=== PATIENT | male | born 1975 | race Caucasian/White ===

== ENCOUNTER 2020-12-12 06:55 | Day surgery (SDC) | payer OTHER, SELFPAY ==
[~2020-12-12] VITALS: Ht 167.6 cm; Wt 79.8 kg
[2020-12-12] MEDS ORDERED: MIDAZOLAM HCL 5 MG/5 ML VIAL ONE (07:31)
[2020-12-12] MEDS ORDERED: SIMETHICONE 40 MG/0.6 ML ML ONE (07:31)
[2020-12-12] MEDS ORDERED: MEPERIDINE 100 MG INJ. 100 MG/ML VIAL ONE (07:31)
[2020-12-12] MEDS ORDERED: fentaNYL CITRATE/PF 100 MCG/2 ML AMP ONE (07:44)
[2020-12-12 14:18] VITALS: BP_SYST 122
== END 2020-12-12 10:30 | disposition home or self-care (01) ==
LOC: SDS 06:55 → SMU 06:55 → SDS 10:30
PROVIDERS: ATTEND Internal Medicine Gastroenterology
DX: Z12.11 Encounter for screening for malignant neoplasm of colon (principal); K70.31 Alcoholic cirrhosis of liver with ascites; I85.00 Esophageal varices without bleeding; K64.8 Other hemorrhoids; J33.8 Other polyp of sinus; F10.21 Alcohol dependence, in remission; E11.9 Type 2 diabetes mellitus without complications; Z68.28 Body mass index [BMI] 28.0-28.9, adult
CPT/HCPCS: 43239; 45378; 36415 ×2; 82962; 87081; 87426; 88305; 88312; 88313; 99152; 99153; G0378; J2175; J2250; J3010

== ENCOUNTER 2021-11-02 12:32 | Inpatient (IN) | payer OTHER ==
[~2021-11-02] VITALS: Ht 167.6 cm; Wt 72.6 kg
[~2021-11-02 12:32] MED LIST: FERR-69 PO; FURO-150 PO; LACT10SO6 PO; LEVO500T90 PO; NADO20TA9 PO; PRO40 PO; RIVA10TA PO; SPIR50TA5 PO
[2021-11-02 12:35] VITALS: BP_SYST 114
--- NOTE | 2021-11-02 12:35 | NUR ---
Placed in room 7 . Placed on rn cardiac, blood pressure machine and pulse oximeter. To gown for exam. Side rails up. Report given to OMA FINE.
--- NOTE | 2021-11-02 12:40 | NUR ---
ER DR. SHAW AT THE BEDSIDE EXAMINING PT
--- NOTE | 2021-11-02 12:55 | NUR ---
# 20 gauge angiocath placed to LAC. Use of asceptic technique. Opsite placed over site. Blood return noted. Blood for lab drawn from site. Flushed with 10 cc of normal saline. No evidence of infiltration noted. Patient tolerated well.
[2021-11-02 13:16] LABS: WHITE BLOOD COUNT (AUTO) 4.1 K/uL (4.8-10.8)
--- NOTE | 2021-11-02 13:16 | NUR ---
In ER 7 Sent by family dt increased confusion Hx of Liver Dx Blood sent including NH4 level Awaiting results
[2021-11-02 13:17] LABS: CALCIUM 7.1 mg/dL (8.4-11.0); CREATININE 0.99 mg/dL (0.55-1.30); POTASSIUM 3.9 mmol/L (3.5-5.1)
[2021-11-02 13:23] LABS: ALBUMIN 2.3 g/dL (3.4-4.8); TOTAL BILIRUBIN 1.1 mg/dL (0.0-1.0)
[2021-11-02 13:25] LABS: BASOPHILS % (AUTO) 1.1 % (0.0-2.0); EOSINOPHILS # (AUTO) 0.1 K/uL (0.0-0.4); EOSINOPHILS % (AUTO) 2.9 % (0.0-4.0); HEMATOCRIT 27.7 % (36-54); HEMOGLOBIN 8.9 g/dL (14.0-18.0); LYMPHOCYTES # (AUTO) 0.4 K/uL (1.0-5.5); LYMPHOCYTES % (AUTO) 9.6 % (20.5-51.5); MEAN CORPUSCULAR HEMOGLOBIN 29 pg (27-31); MEAN CORPUSCULAR HGB CONC 32 % (32-36); MEAN CORPUSCULAR VOLUME 89 fL (79.0-98.0); MONOCYTES # (AUTO) 0.6 K/uL (0.0-1.0); MONOCYTES % (AUTO) 13.7 % (1.7-9.3); NEUTROPHILS % (AUTO) 72.7 % (40.0-70.0); RED BLOOD CELL COUNT(AUTO) 3.12 MIL/uL (4.2-6.2)
[2021-11-02 13:44] LABS: PLATELET COUNT (AUTO) 79 K/uL (130-430)
--- NOTE | 2021-11-02 13:54 | NUR ---
COVID swab given to dr. torrez Addendum: 11/02/21 at 1355 by [email or web address] COVID swab done at bedside and sent to lab
--- NOTE | 2021-11-02 15:01 | NUR ---
Stable. VSS. Confusion persists. Getting out of bed and pulling at lines. To be admitted. Awaiting bed on floor.
[2021-11-02] MEDS ORDERED: RIFAXIMIN 550 MG TABLET PO ONE (17:15)
[2021-11-02 17:22] VITALS: BP_SYST 122
--- NOTE | 2021-11-02 17:23 | NUR ---
CONSULT NEUROLOGY CONFUSION DR DOMINGUEZ SENT TEXT TO DR DOMINGUEZ
--- NOTE | 2021-11-02 18:04 | NUR ---
Stable. VSS. LOC x 2. Confusion has not increased. Patient has been admitted. Report given to floor Ambulated to Placed in bed Nurse aware
[2021-11-02] MEDS: LACTULOSE 20 GM/30 ML UDC PO SCH ×2 (18:19→22:15)
--- NOTE | 2021-11-02 18:48 | NUR ---
RECEIVED PATIENT FROM EMERGENCY ROOM,FAMILY AT BEDSIDE. PATIENT IN BED RESTING COMFORTABLY HOB ELEVATED. NO C/O PAIN OR DISCOMFORT. RESPIRATIONS ARE NON-LABORED. SKIN IS CLEAN, WARM AND DRY TO TOUCH. IV ACCESS IS PATENT, DRY, INTACT, NO S/SX OF REDNESS NOR SWELLING OBSERVED. BED IS LOCKED IN LOWEST POSITION, CALL LIGHT IN REACH. NURSE WILL ENDORSE PATIENT TO REFERRAL SPECIALIST NURSE FOR CONTINUE CARE
[2021-11-02 19:00] VITALS: BP_SYST 103
[2021-11-02 20:00] VITALS: BP_SYST 103
--- NOTE | 2021-11-02 20:00 | NUR ---
Pt A/O x4. No respiratory distress noted or reported. VS stable. Pt denied any pain or discomfort. Encouraged pt to utilize urinal for accurate measurement of intake and output. Instructed pt to call for assistance OOB. Call light and belongings within reach. PIV patent and without complications. All safety precautions in place. Plan for pt to have Paracentesis. Consent to be signed once pt speaks with MD performing procedure and understands all risks and benefits of procedure. Pt on scheduled lactulose to decrease NH3 level. Will reorient pt PRN. Monitoring continued.
--- NOTE | 2021-11-02 20:50 | NUR ---
Spoke with OMA Dennison from [facility] in the Liver Transplant Unit. Updated OMA Dennison with SBAR report. OMA Dennison stated that he will forward information to Liver Transplant Team at [facility]. Liver Transplant Team at [facility] to follow-up with [facility] re: if it is necessary to transfer pt to [facility]. OMA Dennison stated that we may call for any questions or concerns: [facility] 24 hour transplant on-call: [phone] and/or [facility] Transfer Center: [phone].
[2021-11-02] MEDS: RIFAXIMIN 550 MG TABLET PO SCH (22:15)
[2021-11-03] MEDS ORDERED: HYDROcodone/ACETAMIN 10-325 MG TAB PO PRN (00:15)
[2021-11-03] MEDS ORDERED: HYDROcodone/ACETAMIN 5-325 MG TAB (NORCO/ VICODIN) PO PRN (00:15)
[2021-11-03] MEDS ORDERED: ACETAMINOPHEN 325 MG TABLET PO PRN (00:15)
[2021-11-03] MEDS ORDERED: NALOXONE HCL 0.4 MG/ML AMP (NARCAN) IVP PRN ×2 (00:15)
[2021-11-03] MEDS ORDERED: LORazepam 2 MG/ML VIAL IVP PRN (00:15)
[2021-11-03] MEDS ORDERED: ONDANSETRON HCL 4 MG/2 ML VIAL IVP PRN (00:15)
[2021-11-03 00:26] VITALS: BP_SYST 94
[2021-11-03] MEDS ORDERED: NORMAL SALINE 5 ML DISP.SYRIN IVF SCH (06:00)
[2021-11-03] MEDS: NORMAL SALINE 5 ML DISP.SYRIN IVF SCH ×3 (06:51→21:57)
[2021-11-03 07:06] LABS: BASOPHILS % (AUTO) 1.3 % (0.0-2.0); EOSINOPHILS # (AUTO) 0.2 K/uL (0.0-0.4); EOSINOPHILS % (AUTO) 6.7 % (0.0-4.0); HEMATOCRIT 22.6 % (36-54); HEMOGLOBIN 7.3 g/dL (14.0-18.0); LYMPHOCYTES # (AUTO) 0.4 K/uL (1.0-5.5); LYMPHOCYTES % (AUTO) 16.1 % (20.5-51.5); MEAN CORPUSCULAR HEMOGLOBIN 29 pg (27-31); MEAN CORPUSCULAR HGB CONC 32 % (32-36); MEAN CORPUSCULAR VOLUME 89 fL (79.0-98.0); MONOCYTES # (AUTO) 0.5 K/uL (0.0-1.0); MONOCYTES % (AUTO) 17.9 % (1.7-9.3); NEUTROPHILS # (AUTO) 1.6 K/uL (1.8-7.7); PLATELET COUNT (AUTO) 59 K/uL (130-430); RED BLOOD CELL COUNT(AUTO) 2.55 MIL/uL (4.2-6.2); RED CELL DISTRIBUTION WIDTH 17.9 % (9.0-15.0); WHITE BLOOD COUNT (AUTO) 2.7 K/uL (4.8-10.8)
[2021-11-03 07:27] LABS: ALBUMIN 1.9 g/dL (3.4-4.8); CALCIUM 7.2 mg/dL (8.4-11.0); CREATININE 0.85 mg/dL (0.55-1.30); POTASSIUM 3.2 mmol/L (3.5-5.1)
--- NOTE | 2021-11-03 08:00 | NUR ---
PATIENT IN BED RESTING COMFORTABLY, AAOX4, NO S/SX OF PAIN OR DISCOMFORT. RESPIRATIONS ARE NON-LABORED. SKIN IS CLEAN, WARM AND DRY TO TOUCH. IV ACCESS IS PATENT, DRY AND INTACT, NO S/SX OF REDNESS OR SWELLING OBSERVED. BED IS LOCKED IN LOWEST POSITION, CALL LIGHT IN REACH. NURSE WILL CONTINUE CARE AND MONITOR FOR CHANGES IN STATUS.
[2021-11-03] MEDS: FUROSEMIDE 20 MG TABLET PO SCH (09:00)
[2021-11-03] MEDS: PANTOPRAZOLE SODIUM 40 MG TAB PO SCH ×2 (09:00→10:00)
[2021-11-03] MEDS: FERROUS SULFATE 325 MG TABLET.DR PO SCH ×2 (09:00→09:59)
[2021-11-03] MEDS: levoFLOXacin 500 MG TABLET PO SCH (09:00)
[2021-11-03] MEDS ORDERED: LACTULOSE 20 GM/30 ML UDC PO SCH (09:00)
[2021-11-03] MEDS: SPIRONOLACTONE 50 MG TABLET (ALDACTONE) PO SCH (09:00)
[2021-11-03] MEDS: METOPROLOL TARTRATE 25 MG TABLET PO SCH ×2 (09:00→21:56)
[2021-11-03] MEDS: RIFAXIMIN 550 MG TABLET PO SCH ×2 (09:00→21:56)
[2021-11-03] MEDS: LACTULOSE 20 GM/30 ML UDC PO SCH ×4 (09:59→21:56)
--- NOTE | 2021-11-03 11:54 | NUR ---
Logo Admission Assessment - Care Management Last Saved By: Aubree Dooley Last Saved On: 11/03/2021 11:54 AM (PT) Created By: Aubree Dooley Created On: 11/03/2021 11:53 AM (PT) Patient Information Patient Name: PREMA GIRARD Address: [address] [place] [address] [address] [id number] SSN: : 1975 (age 46 years) Work Phone: [phone] Gender: Male Alternative Phone: Marital Status: Other Race: DECLINED TO STATE Race 2: Ethnicity: or or [place] Origin Ethnicity 2: Patient's Information Who was Interviewed? Answers: Other - Specify (Caregiver, Family, Friend etc) Notes: at bedside What language does the patient speak? Answers: Lithuanian Admitting Facility Answers: *[facility] [[id number]] Admitting Diagnosis AMS,hepatic encephalopathy Advanced Care Planning (check all that apply) Answers: Patient does NOT have advanced Care Planning. Additional Patient Notes covid vaccine x 2 & booster History and Prior Level of Function DME--PRIOR to Admission: Answers: No DME Cognitive--PRIOR to Admission: Answers: Alert & Orientated Home Setting--PRIOR to Admission: Answers: Private Home Notes: [facility] 2 steps lives w/ Erika Was patient receiving Home Health Services prior to Admission? Answers: No Potential Barriers to Discharge Anticipated Discharge Disposition Answers: Home Does the patient have any potential barriers to DC? (indicate barrier & plan to address) Answers: NO, anticipate DC to previous living situations, no additional services anticipated Signature Signature: Signature Date Signed: 11/03/2021 11:54 AM (PT) Signed By: Aubree Dooley Position: Inpatient [employer] D[employer] Pager Number: Allscripts Generated (Scan) Page 1 of Copyright 2021 [employer]. [Production([id number])]
[2021-11-03 12:51] VITALS: BP_SYST 122
--- NOTE | 2021-11-03 15:06 | NUR ---
Contacted Dr. Plasencia's exchange and spoke to Izzy at [phone]. Left first message reporting laboratory result of HGB 7.3. HGB was 8.9 on 11/02/21. Patient will not have paracentesis due to ultrasound showing 80ml in right lower abdominal quadrant. Patient currently with no signs of bleeding or shortness of breath. Will wait for call back and continue to monitor patient for changes in condition.
--- NOTE | 2021-11-03 16:40 | NUR ---
Patient is in bed resting comfortably. IV is intact and patent. No redness or swelling observed. No s/sx of pain or discomfort observed. Respirations are even and unlabored. Skin is clean, warm and dry to touch. Bed locked in lowest position safety. Call light within reach. Will continue to monitor patient for any changes in condition.
[2021-11-03 16:45] VITALS: BP_SYST 120
--- NOTE | 2021-11-03 16:53 | NUR ---
Contacted Dr. Plasencia's exchange and spoke to Izzy at [phone]. left Second message regarding HGB 7.3. Also left message reporting laboratory result of K+ 3.2 No s/sx of pain or discomfort, no SOB. Will wait for call back and continue to monitor patient for changes in condition.
--- NOTE | 2021-11-03 16:59 | NUR ---
Correction: Contacted Dr. Plasencia's exchange and spoke to Donovan at [phone]. left Second message regarding HGB 7.3. Also left message reporting laboratory result of K+ 3.2 No s/sx of pain or discomfort, no SOB. Will wait for call back and continue to monitor patient for changes in condition.
[2021-11-03] MEDS ORDERED: POTASSIUM CHLORIDE 20 MEQ TAB.PRT.SR PO ONE (18:00)
[2021-11-03] MEDS: RIVAROXABAN 10 MG TABLET PO SCH (18:10)
--- NOTE | 2021-11-03 18:54 | NUR ---
RECEIVED PATIENT FROM EMERGENCY ROOM,FAMILY AT BEDSIDE. PATIENT IN BED RESTING COMFORTABLY HOB ELEVATED. NO C/O PAIN OR DISCOMFORT. RESPIRATIONS ARE NON-LABORED. SKIN IS CLEAN, WARM AND DRY TO TOUCH. IV ACCESS IS PATENT, DRY, INTACT, NO S/SX OF REDNESS NOR SWELLING OBSERVED. BED IS LOCKED IN LOWEST POSITION, CALL LIGHT IN REACH. NURSE WILL ENDORSE PATIENT TO STRETCH BOX TENDER NURSE FOR CONTINUE CARE.
[2021-11-03 20:00] VITALS: BP_SYST 123
--- NOTE | 2021-11-03 20:00 | NUR ---
Pt A/O x4. No respiratory distress noted or reported. VS stable. Pt denied any pain or discomfort. Encouraged pt to utilize urinal for accurate measurement of intake and output. Instructed pt to call for assistance OOB PRN. Call light and belongings within reach. PIV patent and without complications. All safety precautions in place. Explained to pt that signing consent for paracentesis on hold at this time due to not enough fluid in abd to aspirate. All safety precautions in place. Monitoring continued.
--- NOTE | 2021-11-03 22:35 | NUR ---
Stool OB sent to lab.
[2021-11-04] MEDS: NORMAL SALINE 5 ML DISP.SYRIN IVF SCH ×3 (06:17→20:58)
--- NOTE | 2021-11-04 06:42 | NUR ---
Pt resting in bed with eyes closed. No respiratory distress noted or reported. No adverse events during shift. Pt safety maintained during shift.
[2021-11-04 07:16] LABS: ALBUMIN 1.8 g/dL (3.4-4.8); CALCIUM 7.2 mg/dL (8.4-11.0); CREATININE 0.91 mg/dL (0.55-1.30); PHOSPHORUS 3.3 mg/dL (2.7-4.5); POTASSIUM 3.7 mmol/L (3.5-5.1)
[2021-11-04 07:46] LABS: EOSINOPHILS # (AUTO) 0.1 K/uL (0.0-0.4); EOSINOPHILS % (AUTO) 5.5 % (0.0-4.0); HEMOGLOBIN 7.4 g/dL (14.0-18.0); LYMPHOCYTES # (AUTO) 0.3 K/uL (1.0-5.5); LYMPHOCYTES % (AUTO) 15.5 % (20.5-51.5); MEAN CORPUSCULAR HEMOGLOBIN 29 pg (27-31); MEAN CORPUSCULAR HGB CONC 32 % (32-36); MEAN CORPUSCULAR VOLUME 89 fL (79.0-98.0); MONOCYTES # (AUTO) 0.4 K/uL (0.0-1.0); MONOCYTES % (AUTO) 18.5 % (1.7-9.3); NEUTROPHILS # (AUTO) 1.2 K/uL (1.8-7.7); PLATELET COUNT (AUTO) 60 K/uL (130-430); RED BLOOD CELL COUNT(AUTO) 2.58 MIL/uL (4.2-6.2); RED CELL DISTRIBUTION WIDTH 17.6 % (9.0-15.0)
[2021-11-04 08:01] VITALS: BP_SYST 114
--- NOTE | 2021-11-04 08:01 | NUR ---
INITIAL ROUNDS Received pt sitting up eating breakfast AAOx4, no s/s resp distress, no c/o pain or discomfort. Plan of care for the day reviewed with pt-pt verbalized his understanding. Pain management, disease process, skin and safety discussed-teach back done. Side rails up x3, bed alarm on and room across form nursing station for safety. Call light within reach.
[2021-11-04 09:13] LABS: BASOPHILS % (AUTO) 0.1 % (0.0-2.0); NEUTROPHILS % (AUTO) 60.4 % (40.0-70.0)
[2021-11-04] MEDS: METOPROLOL TARTRATE 25 MG TABLET PO SCH ×2 (09:55→20:57)
[2021-11-04] MEDS: SPIRONOLACTONE 50 MG TABLET (ALDACTONE) PO SCH (09:55)
[2021-11-04] MEDS: RIFAXIMIN 550 MG TABLET PO SCH ×2 (09:57→20:58)
[2021-11-04] MEDS: LACTULOSE 20 GM/30 ML UDC PO SCH ×4 (09:58→20:57)
[2021-11-04] MEDS: levoFLOXacin 500 MG TABLET PO SCH (09:58)
[2021-11-04] MEDS: FUROSEMIDE 20 MG TABLET PO SCH (09:58)
--- NOTE | 2021-11-04 11:08 | NUR ---
ROUNDS/FAMILY Pt sitting up in bed and his Erika is at his bedside plan of care for today reviewed with pt and his -both verbalized her understanding. No c/o pain or discomfort. Needs met. call light within reach.
[2021-11-04 12:12] VITALS: BP_SYST 97
[2021-11-04] MEDS ORDERED: FERROUS SULFATE 325 MG TABLET.DR PO SCH (12:26)
[2021-11-04] MEDS: FERROUS SULFATE 325 MG TABLET.DR PO SCH ×2 (14:05→17:53)
[2021-11-04 16:00] VITALS: BP_SYST 92
[2021-11-04] MEDS: RIVAROXABAN 10 MG TABLET PO SCH (18:00)
--- NOTE | 2021-11-04 18:43 | NUR ---
CLOSING NOTE Pt sitting up in bed talking on the phone with his family. No s/s resp distress, no c/o pain or discomfort. Needs met, call light within reach.
[2021-11-04 20:00] VITALS: BP_SYST 102
--- NOTE | 2021-11-04 22:12 | NUR ---
PATIENT IN BED. NO ACUTE DISTRESS NOTED. REMAINS WITH A SITTER FOR SAFETY. WILL CONTINUE TO MONITOR.
[2021-11-05] VITALS: BP_SYST 101
[2021-11-05] MEDS: NORMAL SALINE 5 ML DISP.SYRIN IVF SCH (05:04)
--- NOTE | 2021-11-05 07:31 | NUR ---
OPENING NOTE Patient in bed, resting with eyes closed. No sign of distress or pain. IV site is clean, dry, intact and saline locked. All needs met at this time, will continue to monitor.
[2021-11-05 08:00] VITALS: BP_SYST 109
[2021-11-05] MEDS ORDERED: RIVAROXABAN 10 MG TABLET PO SCH (08:00)
[2021-11-05] MEDS: LACTULOSE 20 GM/30 ML UDC PO SCH (08:48)
[2021-11-05] MEDS: PANTOPRAZOLE SODIUM 40 MG TAB PO SCH (08:48)
[2021-11-05] MEDS: RIFAXIMIN 550 MG TABLET PO SCH (08:48)
[2021-11-05] MEDS: SPIRONOLACTONE 50 MG TABLET (ALDACTONE) PO SCH (08:49)
[2021-11-05] MEDS: levoFLOXacin 500 MG TABLET PO SCH (08:50)
[2021-11-05] MEDS: FERROUS SULFATE 325 MG TABLET.DR PO SCH (08:50)
[2021-11-05] MEDS: METOPROLOL TARTRATE 25 MG TABLET PO SCH (08:57)
[2021-11-05] MEDS ORDERED: FUROSEMIDE 40 MG TABLET PO SCH (09:00)
[2021-11-05 11:11] VITALS: BP_SYST 109
--- NOTE | 2021-11-05 12:01 | NUR ---
D/C Patient Patient given medication reconciliation form and D/C instructions. Exit Care provided. Patient verbalized understanding. MD discussed with patient the results and treatment provided. Ambulatory with steady gait for discharge to home. Patient in stable condition, ID band removed. IV catheter removed, intact and dressing applied, no active bleeding. Patient discharged to home via private auto with sonMg. Patient educated on pain management. All belongings sent with patient.
== END 2021-11-05 12:00 | disposition home or self-care (01) | DRG 442 ==
LOC: SED 12:32 → SMU 14:12
PROVIDERS: ADMIT Internal Medicine Hospice and Palliative Medicine; ATTEND Internal Medicine Hospice and Palliative Medicine
DX: K72.90 Hepatic failure, unspecified without coma (principal); E87.1 Hypo-osmolality and hyponatremia; E46 Unspecified protein-calorie malnutrition; D64.9 Anemia, unspecified; D69.6 Thrombocytopenia, unspecified; K70.31 Alcoholic cirrhosis of liver with ascites; Z20.822 Contact with and (suspected) exposure to COVID-19; Z79.2 Long term (current) use of antibiotics; Z79.01 Long term (current) use of anticoagulants; Z79.899 Other long term (current) drug therapy; Z68.25 Body mass index [BMI] 25.0-25.9, adult
CPT/HCPCS: 36415; 76705; 80053; 82105; 82140; 82272; 83605; 83735; 84100; 85025; 87040; 99291